=== PATIENT | female | born 1950 | race Caucasian/White ===

== ENCOUNTER → 2017-11-12 | Outpatient (CLI) | payer BC ==
[~2017-11-12] MED LIST: ALEN70TA43 PO; AMOX-556 PO; AZIT-18 PO; LANS30TA12 PO; PANT40TA65 PO; SIMV-1 PO; SIMV-54 PO; TRAM-420 PO; [UNRECOGNIZED DRUG - CODE] PO
--- NOTE | 2017-11-12 11:17 | RADIOLOGY IMAGING REPORT ---
FACILITY: [facility] PATIENT NAME: Anastasia Tracy : 1950 MR: [id number] V: [id number] EXAM DATE: ORDERING PHYSICIAN: MARIA TERESA CALLAHAN TECHNOLOGIST: Location: [facility] Patient: Anastasia Tracy : 1950 Visit/Account:[id number] Date of Sevice: 11/12/2017 BONE MINERAL DENSITY DEXA Scan Clinical history: Screening osteoporosis. DEXA Scan Clinical history: Osteopenia. Comparison: DEXA scan from 09/28/2015. LUMBAR SPINE: The bone mineral density (BMD) measured from L1-L4 correlates with a Z-score 1.5 and a T-score of -0 .7 which is low normal as defined by the World Health Organization. The corresponding risk of fractu re in the lumbar spine is slightly increased but less than 2 times compared with a young adult refere nce population. This value has decreased minimally by -0.5 % since the prior study. More than 5% ch vinicio is considered significant. HIP: Bone mineral density (BMD) measured in the Left total hip region correlates with a Z-score 1.1 and a T-score of -0.7 which is low normal as defined by the World Health Organization. The corresponding r isk of fracture in the hip is minimally increased but less than 2 times compared with a young adult r eference population. This value has decreased by -1.5 % since the prior study. More than 5% change i s considered significant. IMPRESSION: 1. Lumbar spine: Low normal. There has been No significant change in the bone mineral density since the previous exam. 2. Left Total Hip: Low normal. There has been slight decrease in the bone mineral density since the previous exam by -1.5%. The next DEXA scan of this patient should include the following sites: L1-L4 and the left hip. FRAX? WHO Fracture Risk Assessment Tool link: <http://www.shef.ac.uk/FRAX/tool.jsp?locationValue=9> PLEASE NOTE: 1) The World Health Organization defines low BMD as follows: T-score Normal > -1 Osteopenia < -1 and > -2.5 Osteoporosis < -2.5 without fractures Established osteoporosis < -2.5 with fractures 2) In general, you may wish to consider: Diagnosis Treatment Follow-up DEXA Normal BMD Prevention 2-3 years Osteopenia Prevention/therapy 1-2 years Osteoporosis Therapy Yearly 3) Fracture risk estimated from the T-score is more accurate for vertebral fractures (often spontane ous) than for hip fractures. Report Dictated By: Jonathon Hess MD at 11/12/2017 11:10 AM Report E-Signed By: Jonathon Hess MD at 11/12/2017 11:13 AM WSN:[id number]
--- NOTE | 2017-11-13 16:18 | RADIOLOGY IMAGING REPORT ---
FACILITY: [facility] PATIENT NAME: GRACIELA FLOERS : [id number] MR: [id number] V: [id number] EXAM DATE: [id number] ORDERING PHYSICIAN: MARIA TERESA CALLAHAN TECHNOLOGIST: Jasmin Helm PROCEDURE:BILATERAL DIGITAL SCREENING MAMMOGRAM WITH CAD ASSISTED INTERPRETATION & 3D TOMOSYNTHESIS COMPARISON:Prior mammograms 10/10/16, 09/28/15, 09/26/14. INDICATIONS:SCREENING FINDINGS: Breast have scattered fibroglandular parenchymal densities. There are no mammographic findings concerning for malignancy. No changes from priors. DIAGNOSTIC CATEGORY 1--NEGATIVE. RECOMMENDATIONS: ROUTINE MAMMOGRAM AND CLINICAL EVALUATION IN 1 YEAR. IMPRESSION: BIRADS 1: Negative. Dictated by: Ashwin Hernandes on 11/13/2017 at 8:58 Transcribed by: NATALIA on 11/13/2017 at 14:29 Approved by: Ashwin Hernandes on 11/13/2017 at 16:17 [facility]
== END ==
LOC: MAMO 00:55
PROVIDERS: ATTEND Nurse Practitioner Family
DX: Z13.820 Encounter for screening for osteoporosis (principal); Z12.31 Encounter for screening mammogram for malignant neoplasm of breast
CPT/HCPCS: 77063; 77067; 77080

== ENCOUNTER 2017-12-09 00:40 | Day surgery (SDC) | payer BC ==
[~2017-12-09] VITALS: Ht 147.3 cm; Wt 44.0 kg
[~2017-12-09 00:40] MED LIST changes: +ASCO-182 PO; +CHOL10005 PO; +MULT1CAP59 PO; +SIMV-44 PO; +VITA-175 PO
[2017-12-09] MEDS ORDERED: PROPOFOL EMUL(*) 10MG/ML 20 ML 20 ML ONE (07:09)
[2017-12-09] MEDS ORDERED: NORMOSOL R SOLN(*) 1000 ML BAG 1,000 ML IV PRN (07:10)
[2017-12-09] MEDS ORDERED: LIDOCAINE/SOD BICARB 8.4% SYR ID ONE (07:10)
[2017-12-09 07:36] VITALS: BP 125/83
[2017-12-09 08:43] VITALS: BP 83/84
--- NOTE | 2017-12-09 08:54 | Short(Outpt) Discharge Summary ---
Discharge Summary Reason for Hosp/Final Diag: (1) Colon cancer screening Status: Chronic Hospital Course & Plan: Colonoscopy with polypectomy x5 completed without problems. Departure Discharge to: Home, Self Care Discharge Instructions Home Meds Reported Medications Simvastatin (ZOCOR) 40 Mg Tablet, 40 MG PO HS, TAB 11/26/17 Vitamin B Complex (B COMPLEX) 1 Each Tablet, 1 EACH PO QDAY 11/21/17 Cholecalciferol (Vitamin D3) (VITAMIN D3) 1,000 Unit Tablet, 1000 UNIT PO QDAY, TAB 11/21/17 Ascorbic Acid (VITAMIN C) 500 Mg Tablet, 500 MG PO QDAY, TAB 11/21/17 Multivitamin (MULTIVITAMINS) 1 Each Capsule, 1 EACH PO QDAY, CAPSULE 11/21/17 Pantoprazole Sodium (PANTOPRAZOLE SODIUM) 40 Mg Tablet.dr, 1 TAB PO QDAY, TAB.SR 11/10/17 Diet: Regular Activity: As Tolerated Special Instructions: Your colonoscopy was completed without problems and your prep was excellent (Good Job!!). I removed 5 small polyps from your colon and they were sent to pathology for evaluation. My office will call you in the next week to let you know what the polyps are and when your next colonoscopy should be (3, 5, or 10 years) depending on the pathology results. RAYRAY AZUL MD Dec 09, 2017 08:54
[2017-12-09 09:00] VITALS: BP 92/56
[2017-12-09 09:10] VITALS: BP 100/75
[2017-12-09 09:11] VITALS: BP 112/68
== END 2017-12-09 09:28 | disposition home or self-care (01) ==
LOC: OR 00:40
PROVIDERS: ATTEND Surgery
DX: Z12.11 Encounter for screening for malignant neoplasm of colon (principal); D12.5 Benign neoplasm of sigmoid colon; K62.1 Rectal polyp; G47.33 Obstructive sleep apnea (adult) (pediatric); F17.210 Nicotine dependence, cigarettes, uncomplicated; K21.9 Gastro-esophageal reflux disease without esophagitis; E78.5 Hyperlipidemia, unspecified
CPT/HCPCS: 00811; 45385; 88305; J2704